=== PATIENT | female | born 2000 | race African-American/Black ===

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

== ENCOUNTER 2020-01-13 10:25 | Emergency (ER) | payer MEDICAID ==
[~2020-01-13] VITALS: Ht 172.7 cm; Wt 124.5 kg
[2020-01-13 10:40] VITALS: BP 126/64
--- NOTE | 2020-01-13 10:55 | NUR ---
PATIENT BROUGHT BACK FROM TRIAGE WITH CHIEF COMPLAINT OF SORE MOUTH FOR FOUR DAYS AND N/V/D FOR 2 DAYS. PT DENIED CP, SOB, RECENT TRAUMA.
[2020-01-13] MEDS ORDERED: ONDANSETRON ODT 4 MG ONE (11:19)
[2020-01-13] MEDS ORDERED: ONDANSETRON ODT 4 MG PO ONE (11:30)
--- NOTE | 2020-01-13 12:13 | NUR ---
DISCHARGE INSTRUCTIONS REVIEWED
--- NOTE | 2020-01-13 12:16 | NUR ---
Patient given discharge instructions and they have confirmed that they understand the instructions. Patient ambulatory with steady gait.
== END 2020-01-13 12:18 | disposition home or self-care (01) ==
LOC: ED 12:00
DX: K52.9 Noninfective gastroenteritis and colitis, unspecified (principal); J02.8 Acute pharyngitis due to other specified organisms; B97.89 Other viral agents as the cause of diseases classified elsewhere; R11.2 Nausea with vomiting, unspecified
CPT/HCPCS: 99283; Q0162

== ENCOUNTER 2020-07-01 03:31 | Emergency (ER) | payer MEDICAID ==
[~2020-07-01] VITALS: Ht 172.7 cm; Wt 123.0 kg
--- NOTE | 2020-07-01 03:40 | NUR ---
assumed care of pt. attempted to enter room to assess pt, pt not in room
--- NOTE | 2020-07-01 03:45 | NUR ---
pt has multiple c/o. pt reports that she has been having N/V x3 weeks and that she has been having diarrhea x1 week. pt reports that she is having vaginal itching and burning and that she has a new sexual partner recently within the past 2 months and that she wants an HIV test. pt states that she is not using STD protection with her partner. denies pt denies urinary frequency urgency or burning. reports that she has been having intermittent abd pain, but denies at this time. pt currently drinking iced coffee and texting on cellphone.
--- NOTE | 2020-07-01 03:59 | NUR ---
Sandra MONDRAGON has been to bedside for eval. pt reports that she is currently on her period but is having minimal bleeding and has a tampon in place. states that she cannot give a urine sample at this time
[2020-07-01 04:21] LABS: MEAN CORPUSCULAR HEMOGLOBIN 28.4 pg (27.0-34.8); MEAN CORPUSCULAR HGB CONC 32.8 g/dL (32.4-35.8); MEAN CORPUSCULAR VOLUME 86.5 fL (80-100); PLATELET COUNT 441 x10^3/uL (130-400); RED BLOOD COUNT 4.48 x10^6/uL (3.82-5.3); RED CELL DISTRIBUTION WIDTH 13.5 % (9.6-15.2)
--- NOTE | 2020-07-01 04:24 | NUR ---
Dr. Armas at bedside for eval
[2020-07-01 04:28] LABS: ALANINE AMINOTRANSFERASE 16 U/L (12-78); ALBUMIN 3.4 g/dL (3.4-5.0); ANION GAP 7 mmol/L (5-15); CALCIUM 8.6 mg/dL (8.5-10.1); CHLORIDE 107 mmol/L (98-107); CREATININE 0.91 mg/dL (0.55-1.02)
[2020-07-01 04:32] LABS: ALKALINE PHOSPHATASE 107 U/L (45-117); BILIRUBIN,TOTAL 0.3 mg/dL (0.2-1.0); TOTAL PROTEIN 7.5 g/dL (6.4-8.2)
[2020-07-01 04:48] LABS: MICROSCOPIC AUTO
[2020-07-01 04:49] LABS: BASOPHILS # (AUTO) 0.07 x10^3/uL (0-0.3); BASOPHILS % (AUTO) 0 % (0-1); EOSINOPHILS # (AUTO) 0.13 x10^3/uL (0-0.8); EOSINOPHILS % (AUTO) 1 % (1-7); LYMPHOCYTES # (AUTO) 6.04 x10^3/uL (1-6.1); LYMPHOCYTES % (AUTO) 31 % (22-44); MD SCAN; MONOCYTES # (AUTO) 0.93 x10^3/uL (0-1.4); MONOCYTES % (AUTO) 5 % (2-9); NEUTROPHILS # (AUTO) 12.07 x10^3/uL (1.8-8.0); NEUTROPHILS % (AUTO) 63 % (42-75)
--- NOTE | 2020-07-01 04:49 | NUR ---
chart up for MD recheck
[2020-07-01 05:13] VITALS: BP 110/69
== END 2020-07-01 05:17 | disposition home or self-care (01) ==
LOC: ED 04:16
DX: N30.01 Acute cystitis with hematuria (principal); D72.829 Elevated white blood cell count, unspecified; R10.84 Generalized abdominal pain; R19.7 Diarrhea, unspecified; R11.2 Nausea with vomiting, unspecified; R10.13 Epigastric pain
CPT/HCPCS: 36415; 80053; 81001; 83690; 84703; 85025; 87086; 99283